=== PATIENT | female | born 1995 | race Caucasian/White ===

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

== ENCOUNTER 2018-03-12 16:15 | Inpatient (IN) | payer MEDICAID ==
[~2018-03-12] VITALS: Ht 170.2 cm; Wt 81.2 kg
[2018-03-12 16:28] VITALS: BP_SYST 123
[2018-03-12 17:01] LABS: BILIRUBIN,URINE 1+ (NEGATIVE); BLOOD, URINE NEGATIVE (NEGATIVE); CLARITY/URINE SL CLOUDY (CLEAR); COLOR,URINE YELLOW (YELLOW); GLUCOSE,URINE NEGATIVE (NEGATIVE); KETONES,URINE 3+ (NEGATIVE); LEUKOCYTE ESTERASE ,URINE TRACE (NEGATIVE); NITRITE, URINE NEGATIVE (NEGATIVE); PH,URINE 5.5 (5.0-8.0); PROTEIN URINE NEGATIVE (NEGATIVE)
[2018-03-12 17:05] LABS: BASOPHILS % (AUTO) 0.6 % (0.0-2.0); EOSINOPHILS # (AUTO) 0.1 K/uL (0.0-0.4); EOSINOPHILS % (AUTO) 1.4 % (0.0-4.0); HEMATOCRIT 41.5 % (36-48); HEMOGLOBIN 13.6 g/dL (12.0-16.0); LYMPHOCYTES # (AUTO) 0.9 K/uL (1.0-5.5); MEAN CORPUSCULAR HEMOGLOBIN 29 pg (27-31); MEAN CORPUSCULAR HGB CONC 33 % (32-36); MEAN CORPUSCULAR VOLUME 87 fL (79.0-98.0); MONOCYTES # (AUTO) 0.6 K/uL (0.0-1.0); MONOCYTES % (AUTO) 7.8 % (1.7-9.3); NEUTROPHILS # (AUTO) 6.5 K/uL (1.8-7.7); NEUTROPHILS % (AUTO) 79.2 % (40.0-70.0); PLATELET COUNT (AUTO) 216 K/uL (130-430); RED BLOOD CELL COUNT(AUTO) 4.78 MIL/uL (4.2-6.2); RED CELL DISTRIBUTION WIDTH 12.2 % (9.0-15.0); WHITE BLOOD COUNT (AUTO) 8.1 K/uL (4.5-11.0)
[2018-03-12 17:11] LABS: BACTERIA,URINE MODERATE /HPF (None Seen); RBC,URINE 0-3 /HPF (0-3)
[2018-03-12 17:15] LABS: CALCIUM 9.3 mg/dL (8.4-11.0); CREATININE 0.7 mg/dL (0.55-1.30); POTASSIUM 4.1 mmol/L (3.5-5.1)
[2018-03-12 17:19] LABS: ALBUMIN 3.9 g/dL (3.4-4.8); TOTAL BILIRUBIN 0.9 mg/dL (0.0-1.0)
[2018-03-12 17:21] LABS: INR 1.1 (0.8-1.2); PROTHROMBIN TIME 10.8 SECS (9.5-12.5)
[2018-03-12] MEDS ORDERED: ONDANSETRON HCL 4 MG/2 ML VIAL IVP ONE (18:00)
[2018-03-12] MEDS ORDERED: MORPHINE 2 MG/ML INJ. SYRINGE IVP ONE (18:00)
[2018-03-12] MEDS ORDERED: MORPHINE 4 MG/ML INJ. SYRINGE IVP ONE (18:15)
[2018-03-12] MEDS ORDERED: methylPREDNISolone SOD SUCC/PF 62.5 MG/ML VIAL IVP ONE (19:00)
[2018-03-12] MEDS ORDERED: DIPHENHYDRAMINE INJ 50 MG/ML VIAL IVP ONE (19:00)
[2018-03-12] MEDS ORDERED: fentaNYL CITRATE/PF 100 MCG/2 ML AMP IVP ONE (19:00)
[2018-03-12] MEDS ORDERED: HYDROcodone/ACETAMIN 10-325 MG TAB PO PRN (20:45)
[2018-03-12] MEDS ORDERED: ACETAMINOPHEN 325 MG TABLET PO PRN (21:00)
[2018-03-12] MEDS ORDERED: MAG-AL HYDROX/SIMETH 30 ML UDC PO PRN (21:00)
[2018-03-12] MEDS ORDERED: DIPHENHYDRAMINE INJ 50 MG/ML VIAL IVP PRN (21:00)
[2018-03-12] MEDS: fentaNYL CITRATE/PF 100 MCG/2 ML AMP IVP PRN (21:10)
[2018-03-12] MEDS: FAMOTIDINE PF 20 MG/2 ML VIAL IVP SCH (21:21)
[2018-03-12 21:30] LABS: BARBITURATE, URINE NEGATIVE (NEG <=200); BENZODIAZEPINE, URINE NEGATIVE (NEG <=150); CANNABINOID, URINE NEGATIVE (NEG <=50); COCAINE, URINE NEGATIVE (NEG <=150); METHAMPHETAMINES SCREEN,URINE NEGATIVE (NEG <=500); OPIATE, URINE POSITIVE (NEG <=100); PHENCYCLIDINE SCREEN,URINE NEGATIVE (NEG <=25); UR TRICYCLIC ANTIDEPRESSANTS NEGATIVE (NEG <=300); URINE AMPHETAMINE NEGATIVE (NEG <=500); URINE METHADONE NEGATIVE (NEG <=200); URINE OXYCODONE SCREEN NEGATIVE (NEG <=100); URINE PROPOXYPHENE SCREEN NEGATIVE (NEG <=300)
[2018-03-12] MEDS: LR 1,000 ML IV SCH (21:47)
[2018-03-12] MEDS: HYDROmorphone 1 MG INJ. 1 MG/ML AMPUL IVP PRN (22:21)
[2018-03-12] MEDS: ONDANSETRON HCL 4 MG/2 ML VIAL IVP PRN (22:21)
[2018-03-12 22:27] VITALS: BP_SYST 122
[2018-03-13 00:25] VITALS: BP_SYST 126
[2018-03-13] MEDS: HYDROmorphone 1 MG INJ. 1 MG/ML AMPUL IVP PRN ×7 (00:25→20:52)
[2018-03-13] MEDS: ONDANSETRON HCL 4 MG/2 ML VIAL IVP PRN ×3 (06:26→20:52)
[2018-03-13 07:41] LABS: BASOPHILS % (AUTO) 0.6 % (0.0-2.0); EOSINOPHILS % (AUTO) 0.1 % (0.0-4.0); HEMATOCRIT 39.5 % (36-48); HEMOGLOBIN 12.6 g/dL (12.0-16.0); LYMPHOCYTES # (AUTO) 0.7 K/uL (1.0-5.5); LYMPHOCYTES % (AUTO) 11.3 % (20.5-51.5); MEAN CORPUSCULAR HEMOGLOBIN 28 pg (27-31); MEAN CORPUSCULAR HGB CONC 32 % (32-36); MEAN CORPUSCULAR VOLUME 87 fL (79.0-98.0); MONOCYTES # (AUTO) 0.1 K/uL (0.0-1.0); MONOCYTES % (AUTO) 1.7 % (1.7-9.3); NEUTROPHILS # (AUTO) 5.7 K/uL (1.8-7.7); NEUTROPHILS % (AUTO) 86.3 % (40.0-70.0); PLATELET COUNT (AUTO) 217 K/uL (130-430); RED BLOOD CELL COUNT(AUTO) 4.54 MIL/uL (4.2-6.2); WHITE BLOOD COUNT (AUTO) 6.5 K/uL (4.5-11.0)
[2018-03-13 08:00] VITALS: BP_SYST 113
[2018-03-13 08:13] LABS: ALBUMIN 3.4 g/dL (3.4-4.8); CREATININE 0.67 mg/dL (0.55-1.30); POTASSIUM 4.1 mmol/L (3.5-5.1); TOTAL BILIRUBIN 0.6 mg/dL (0.0-1.0)
[2018-03-13] MEDS: FAMOTIDINE PF 20 MG/2 ML VIAL IVP SCH ×2 (08:28→20:52)
[2018-03-13] MEDS: LR 1,000 ML IV SCH ×3 (08:28→21:21)
[2018-03-13] MEDS ORDERED: DIATR MEGLU/DIATRIZ SOD 30 ML SOLUTION PO ONE (09:10)
[2018-03-13] MEDS: DIPHENHYDRAMINE INJ 50 MG/ML VIAL IVP PRN ×3 (11:21→23:36)
[2018-03-13 12:13] VITALS: BP_SYST 121
[2018-03-13] MEDS ORDERED: NA PHOS,M-B/NA PHOS,DI-BA 118 ML (FLEET ENEMA) RC ONE (15:00)
[2018-03-13 15:34] VITALS: BP_SYST 109
[2018-03-13] MEDS ORDERED: BISACODYL 5 MG TABLET.DR (DULCOLAX) PO ONE (17:00)
[2018-03-13] MEDS ORDERED: GOLYTELY / COLYTE SOLUTION 4 LITERS PO ONE (18:00)
[2018-03-13 19:40] VITALS: BP_SYST 107
[2018-03-14] VITALS: BP_SYST 107
[2018-03-14] MEDS: HYDROmorphone 1 MG INJ. 1 MG/ML AMPUL IVP PRN ×5 (06:39→17:29)
[2018-03-14 07:32] LABS: ALBUMIN 2.9 g/dL (3.4-4.8); CALCIUM 8.4 mg/dL (8.4-11.0); CREATININE 0.82 mg/dL (0.55-1.30); TOTAL BILIRUBIN 0.4 mg/dL (0.0-1.0)
[2018-03-14 07:41] LABS: PROTHROMBIN TIME 10.4 SECS (9.5-12.5)
[2018-03-14 08:30] VITALS: BP_SYST 114
[2018-03-14] MEDS: FAMOTIDINE PF 20 MG/2 ML VIAL IVP SCH ×2 (08:54→21:48)
[2018-03-14] MEDS: LR 1,000 ML IV SCH ×2 (08:55→22:00)
[2018-03-14 11:58] VITALS: BP_SYST 118
[2018-03-14] MEDS: ONDANSETRON HCL 4 MG/2 ML VIAL IVP PRN ×2 (13:59→18:51)
[2018-03-14] MEDS ORDERED: LR 1,000 ML IV SCH (15:40)
[2018-03-14] MEDS ORDERED: METOCLOPRAMIDE HCL 10 MG/2 ML VIAL IVP PRN (15:45)
[2018-03-14] MEDS ORDERED: MORPHINE 4 MG/ML INJ. SYRINGE IVP PRN ×3 (15:45)
[2018-03-14] MEDS ORDERED: MIVACURIUM CHLORIDE 20 MG/10 ML VIAL (MIVACRON) INJ ONE (16:00)
[2018-03-14] MEDS ORDERED: fentaNYL CITRATE/PF 100 MCG/2 ML AMP ONE (16:00)
[2018-03-14] MEDS ORDERED: PROPOFOL 200MG/ 20ML VIAL (DIPRIVAN) IV ONE (16:00)
[2018-03-14] MEDS ORDERED: MIDAZOLAM HCL 5 MG/ML VIAL (VERSED) IV ONE (16:00)
[2018-03-14] MEDS ORDERED: WATER FOR IRRIGATION,STERILE 1,000 ML IRRIG.SOLN IR ONE (16:00)
[2018-03-14] MEDS ORDERED: ONDANSETRON HCL 4 MG/2 ML VIAL ONE (16:00)
[2018-03-14] MEDS ORDERED: LR 1,000 ML IV.SOLN IV ONE (16:00)
[2018-03-14] MEDS ORDERED: SEVOFLURANE 15 MIN GAS INH ONE (16:00)
[2018-03-14 16:45] VITALS: BP_SYST 114
[2018-03-14 17:01] VITALS: BP_SYST 118
[2018-03-14] MEDS ORDERED: cefTRIAXone 1 GM in D5W 50 ML IV SCH (17:30)
[2018-03-14 19:45] VITALS: BP_SYST 112
[2018-03-14] MEDS: NITROFURANTOIN MONOHYD/M-CRYST 100 MG CAPSULE PO SCH (21:48)
[2018-03-15 00:36] VITALS: BP_SYST 110
[2018-03-15] MEDS: ONDANSETRON HCL 4 MG/2 ML VIAL IVP PRN ×2 (05:56→11:41)
[2018-03-15] MEDS: fentaNYL CITRATE/PF 100 MCG/2 ML AMP IVP PRN ×2 (06:56→10:00)
[2018-03-15 07:50] LABS: BASOPHILS % (AUTO) 0.1 % (0.0-2.0); EOSINOPHILS # (AUTO) 0.1 K/uL (0.0-0.4); EOSINOPHILS % (AUTO) 1.1 % (0.0-4.0); HEMATOCRIT 37.5 % (36-48); HEMOGLOBIN 12.2 g/dL (12.0-16.0); LYMPHOCYTES # (AUTO) 1.3 K/uL (1.0-5.5); LYMPHOCYTES % (AUTO) 16.7 % (20.5-51.5); MEAN CORPUSCULAR HEMOGLOBIN 28 pg (27-31); MEAN CORPUSCULAR HGB CONC 33 % (32-36); MEAN CORPUSCULAR VOLUME 87 fL (79.0-98.0); MONOCYTES # (AUTO) 0.7 K/uL (0.0-1.0); MONOCYTES % (AUTO) 9.4 % (1.7-9.3); NEUTROPHILS # (AUTO) 5.4 K/uL (1.8-7.7); NEUTROPHILS % (AUTO) 72.7 % (40.0-70.0); PLATELET COUNT (AUTO) 217 K/uL (130-430); RED CELL DISTRIBUTION WIDTH 11.7 % (9.0-15.0); WHITE BLOOD COUNT (AUTO) 7.5 K/uL (4.5-11.0)
[2018-03-15 07:57] LABS: ALBUMIN 3.5 g/dL (3.4-4.8); POTASSIUM 3.7 mmol/L (3.5-5.1); TOTAL BILIRUBIN 0.7 mg/dL (0.0-1.0)
[2018-03-15 08:00] VITALS: BP_SYST 103
[2018-03-15 08:30] LABS: ERYTHROCYTE SEDIMENTATION RATE 28 MM/HR (0-20)
[2018-03-15] MEDS: NITROFURANTOIN MONOHYD/M-CRYST 100 MG CAPSULE PO SCH ×2 (08:30→20:35)
[2018-03-15] MEDS: LR 1,000 ML IV SCH ×2 (08:30→20:20)
[2018-03-15] MEDS: FAMOTIDINE PF 20 MG/2 ML VIAL IVP SCH ×2 (08:30→20:35)
[2018-03-15 08:40] LABS: FREE T4 (FREE THYROXINE) 0.9 ng/dL (0.6-1.6)
[2018-03-15] MEDS ORDERED: DIATR MEGLU/DIATRIZ SOD 30 ML SOLUTION PO ONE (08:40)
[2018-03-15 08:41] LABS: THYROID STIMULATING HORMONE 1.54 uIu/mL (0.34-4.82)
[2018-03-15 08:55] LABS: CREATININE 0.76 mg/dL (0.55-1.30)
[2018-03-15] MEDS: HYDROmorphone 1 MG INJ. 1 MG/ML AMPUL IVP PRN ×3 (11:36→22:51)
[2018-03-15 12:06] VITALS: BP_SYST 114
[2018-03-15] MEDS ORDERED: DEXAMETHASONE SOD PHOSPHATE 4 MG/ML VIAL IVP ONE (13:00)
[2018-03-15] MEDS ORDERED: DIPHENHYDRAMINE INJ 50 MG/ML VIAL IVP ONE (13:00)
[2018-03-15] MEDS ORDERED: IOHEXOL 100 ML IV ONE (14:40)
[2018-03-15 16:02] VITALS: BP_SYST 105
[2018-03-15 20:34] VITALS: BP_SYST 97
[2018-03-16 00:37] VITALS: BP_SYST 108
[2018-03-16] MEDS: LR 1,000 ML IV SCH (06:03)
[2018-03-16] MEDS: HYDROmorphone 1 MG INJ. 1 MG/ML AMPUL IVP PRN ×2 (06:04→11:56)
[2018-03-16] MEDS: ONDANSETRON HCL 4 MG/2 ML VIAL IVP PRN ×2 (06:17→15:41)
[2018-03-16 06:53] LABS: BASOPHILS % (AUTO) 0.1 % (0.0-2.0); EOSINOPHILS % (AUTO) 0.6 % (0.0-4.0); HEMATOCRIT 36.8 % (36-48); HEMOGLOBIN 12.2 g/dL (12.0-16.0); LYMPHOCYTES % (AUTO) 15.8 % (20.5-51.5); MEAN CORPUSCULAR HEMOGLOBIN 29 pg (27-31); MEAN CORPUSCULAR HGB CONC 33 % (32-36); MEAN CORPUSCULAR VOLUME 87 fL (79.0-98.0); MONOCYTES # (AUTO) 0.5 K/uL (0.0-1.0); MONOCYTES % (AUTO) 8.2 % (1.7-9.3); NEUTROPHILS # (AUTO) 4.8 K/uL (1.8-7.7); NEUTROPHILS % (AUTO) 75.3 % (40.0-70.0); PLATELET COUNT (AUTO) 205 K/uL (130-430); RED BLOOD CELL COUNT(AUTO) 4.22 MIL/uL (4.2-6.2); RED CELL DISTRIBUTION WIDTH 11.8 % (9.0-15.0); WHITE BLOOD COUNT (AUTO) 6.3 K/uL (4.5-11.0)
[2018-03-16 07:16] LABS: ALBUMIN 3.2 g/dL (3.4-4.8); CALCIUM 9.2 mg/dL (8.4-11.0); CREATININE 0.58 mg/dL (0.55-1.30); TOTAL BILIRUBIN 0.4 mg/dL (0.0-1.0)
[2018-03-16 08:00] VITALS: BP_SYST 136
[2018-03-16] MEDS: FAMOTIDINE PF 20 MG/2 ML VIAL IVP SCH ×2 (09:37→21:00)
[2018-03-16] MEDS: NITROFURANTOIN MONOHYD/M-CRYST 100 MG CAPSULE PO SCH (09:37)
[2018-03-16 11:51] VITALS: BP_SYST 118
[2018-03-16] MEDS: DIPHENHYDRAMINE INJ 50 MG/ML VIAL IVP PRN ×2 (13:28→19:01)
[2018-03-16] MEDS ORDERED: HYDROcodone/ACETAMIN 5-325 MG TAB (NORCO/ VICODIN) PO PRN (14:00)
[2018-03-16] MEDS ORDERED: ACETAMINOPHEN 325 MG TABLET PO PRN (14:15)
[2018-03-16] MEDS ORDERED: cefTRIAXone 1 GM in D5W 50 ML IV SCH (15:00)
[2018-03-16] MEDS: AZITHROMYCIN 500 MG in NS 250 ML IV SCH (15:03)
[2018-03-16 16:13] VITALS: BP_SYST 102
[2018-03-16 20:56] VITALS: BP_SYST 106
[2018-03-17 00:30] VITALS: BP_SYST 104
[2018-03-17] MEDS: HYDROcodone/ACETAMIN 10-325 MG TAB PO PRN ×4 (00:47→21:22)
[2018-03-17] MEDS: ONDANSETRON HCL 4 MG/2 ML VIAL IVP PRN (01:30)
[2018-03-17] MEDS: DIPHENHYDRAMINE INJ 50 MG/ML VIAL IVP PRN ×3 (01:55→20:04)
[2018-03-17 07:46] VITALS: BP_SYST 107
[2018-03-17] MEDS: FAMOTIDINE PF 20 MG/2 ML VIAL IVP SCH ×2 (08:57→20:05)
[2018-03-17] MEDS: AZITHROMYCIN 500 MG in NS 250 ML IV SCH (13:41)
[2018-03-17 16:00] VITALS: BP_SYST 114
[2018-03-17 16:44] VITALS: BP_SYST 114
[2018-03-17] MEDS: AMOXICILLIN 500 MG CAPSULE PO SCH (18:54)
[2018-03-17 19:59] VITALS: BP_SYST 100
[2018-03-17] MEDS: DOCUSATE SODIUM 250 MG CAPSULE PO SCH (20:04)
[2018-03-18 00:37] VITALS: BP_SYST 111
[2018-03-18] MEDS: AMOXICILLIN 500 MG CAPSULE PO SCH ×3 (03:47→18:10)
[2018-03-18] MEDS: HYDROcodone/ACETAMIN 10-325 MG TAB PO PRN ×4 (07:01→20:56)
[2018-03-18 07:42] LABS: BASOPHILS % (AUTO) 0.2 % (0.0-2.0); EOSINOPHILS # (AUTO) 0.2 K/uL (0.0-0.4); EOSINOPHILS % (AUTO) 2.6 % (0.0-4.0); HEMATOCRIT 38.2 % (36-48); HEMOGLOBIN 12.9 g/dL (12.0-16.0); LYMPHOCYTES # (AUTO) 1.2 K/uL (1.0-5.5); LYMPHOCYTES % (AUTO) 15.7 % (20.5-51.5); MEAN CORPUSCULAR HEMOGLOBIN 29 pg (27-31); MEAN CORPUSCULAR HGB CONC 34 % (32-36); MEAN CORPUSCULAR VOLUME 85 fL (79.0-98.0); MONOCYTES # (AUTO) 0.6 K/uL (0.0-1.0); MONOCYTES % (AUTO) 8.1 % (1.7-9.3); NEUTROPHILS # (AUTO) 5.7 K/uL (1.8-7.7); NEUTROPHILS % (AUTO) 73.4 % (40.0-70.0); PLATELET COUNT (AUTO) 254 K/uL (130-430); RED BLOOD CELL COUNT(AUTO) 4.49 MIL/uL (4.2-6.2); RED CELL DISTRIBUTION WIDTH 11.7 % (9.0-15.0); WHITE BLOOD COUNT (AUTO) 7.7 K/uL (4.5-11.0)
[2018-03-18 07:49] LABS: CALCIUM 8.9 mg/dL (8.4-11.0); CREATININE 0.8 mg/dL (0.55-1.30); POTASSIUM 3.6 mmol/L (3.5-5.1)
[2018-03-18 08:00] VITALS: BP_SYST 114
[2018-03-18] MEDS: DOCUSATE SODIUM 250 MG CAPSULE PO SCH ×2 (08:05→20:54)
[2018-03-18] MEDS: FAMOTIDINE PF 20 MG/2 ML VIAL IVP SCH ×2 (08:06→20:55)
[2018-03-18] MEDS: DIPHENHYDRAMINE INJ 50 MG/ML VIAL IVP PRN (09:07)
[2018-03-18 11:39] LABS: ERYTHROCYTE SEDIMENTATION RATE 38 MM/HR (0-20)
[2018-03-18 12:33] VITALS: BP_SYST 117
[2018-03-18] MEDS: AZITHROMYCIN 500 MG in NS 250 ML IV SCH (13:00)
[2018-03-18] MEDS: ONDANSETRON HCL 4 MG/2 ML VIAL IVP PRN (14:59)
[2018-03-18 16:53] VITALS: BP_SYST 105
[2018-03-18 20:00] VITALS: BP_SYST 105
[2018-03-18] MEDS: GABAPENTIN 100 MG CAPSULE PO SCH (20:55)
[2018-03-18] MEDS: METHOCARBAMOL 500 MG TABLET PO SCH (20:55)
[2018-03-19 00:32] VITALS: BP_SYST 102
[2018-03-19] MEDS: ALBUTEROL SULFATE 0.083% 2.5 MG/3 ML VIAL.NEB INH PRN ×2 (00:47→19:20)
[2018-03-19] MEDS: HYDROcodone/ACETAMIN 10-325 MG TAB PO PRN ×2 (00:55→18:03)
[2018-03-19] MEDS: ONDANSETRON HCL 4 MG/2 ML VIAL IVP PRN ×2 (02:12→10:33)
[2018-03-19] MEDS: AMOXICILLIN 500 MG CAPSULE PO SCH ×3 (02:12→18:03)
[2018-03-19] MEDS: MORPHINE 4 MG/ML INJ. SYRINGE IVP PRN ×2 (02:37→07:20)
[2018-03-19 08:00] VITALS: BP_SYST 119
[2018-03-19] MEDS: FAMOTIDINE PF 20 MG/2 ML VIAL IVP SCH ×2 (08:33→20:05)
[2018-03-19] MEDS: DOCUSATE SODIUM 250 MG CAPSULE PO SCH ×2 (08:33→20:04)
[2018-03-19] MEDS: GABAPENTIN 100 MG CAPSULE PO SCH ×3 (08:33→20:05)
[2018-03-19] MEDS: METHOCARBAMOL 500 MG TABLET PO SCH ×4 (08:33→20:04)
[2018-03-19 12:39] VITALS: BP_SYST 106
[2018-03-19] MEDS: AZITHROMYCIN 500 MG in NS 250 ML IV SCH (13:18)
[2018-03-19 16:57] VITALS: BP_SYST 117
[2018-03-19 20:00] VITALS: BP_SYST 128
[2018-03-20 00:36] VITALS: BP_SYST 120
[2018-03-20] MEDS: HYDROcodone/ACETAMIN 10-325 MG TAB PO PRN ×4 (00:48→17:56)
[2018-03-20] MEDS: AMOXICILLIN 500 MG CAPSULE PO SCH ×3 (02:04→18:13)
[2018-03-20 08:19] VITALS: BP_SYST 92
[2018-03-20] MEDS: DOCUSATE SODIUM 250 MG CAPSULE PO SCH ×2 (08:28→20:37)
[2018-03-20] MEDS: GABAPENTIN 100 MG CAPSULE PO SCH ×4 (08:28→20:37)
[2018-03-20] MEDS: METHOCARBAMOL 500 MG TABLET PO SCH ×4 (08:28→20:37)
[2018-03-20] MEDS: FAMOTIDINE PF 20 MG/2 ML VIAL IVP SCH ×2 (08:29→20:37)
[2018-03-20 09:21] VITALS: BP_SYST 92
[2018-03-20] MEDS: ONDANSETRON HCL 4 MG/2 ML VIAL IVP PRN ×3 (10:51→23:17)
[2018-03-20 12:45] VITALS: BP_SYST 115
[2018-03-20] MEDS: AZITHROMYCIN 500 MG in NS 250 ML IV SCH (13:52)
[2018-03-20] MEDS: LORazepam 2 MG/ML VIAL IVP PRN ×2 (14:44→20:27)
[2018-03-20 17:09] VITALS: BP_SYST 99
[2018-03-20] MEDS: ALBUTEROL SULFATE 0.083% 2.5 MG/3 ML VIAL.NEB INH PRN (18:15)
[2018-03-20] MEDS ORDERED: HYDROcodone/ACETAMIN 10-325 MG TAB PO ONE (19:15)
[2018-03-20 23:56] VITALS: BP_SYST 102
[2018-03-21] MEDS: D5/0.45 NS 1,000 ML IV SCH ×4 (00:41→23:50)
[2018-03-21] MEDS: KETOROLAC TROMETHAMINE 15 MG VIAL IVP PRN ×2 (00:42→20:13)
[2018-03-21] MEDS: AMOXICILLIN 500 MG CAPSULE PO SCH ×3 (05:35→19:32)
[2018-03-21 06:47] LABS: CALCIUM 8.9 mg/dL (8.4-11.0); CREATININE 0.8 mg/dL (0.55-1.30)
[2018-03-21 07:02] LABS: TOTAL BILIRUBIN 0.4 mg/dL (0.0-1.0)
[2018-03-21 07:21] LABS: BASOPHILS % (AUTO) 0.4 % (0.0-2.0); EOSINOPHILS # (AUTO) 0.2 K/uL (0.0-0.4); EOSINOPHILS % (AUTO) 3.9 % (0.0-4.0); HEMOGLOBIN 12.9 g/dL (12.0-16.0); LYMPHOCYTES # (AUTO) 1.5 K/uL (1.0-5.5); LYMPHOCYTES % (AUTO) 23.8 % (20.5-51.5); MEAN CORPUSCULAR HEMOGLOBIN 29 pg (27-31); MEAN CORPUSCULAR HGB CONC 34 % (32-36); MEAN CORPUSCULAR VOLUME 85 fL (79.0-98.0); MONOCYTES # (AUTO) 0.7 K/uL (0.0-1.0); MONOCYTES % (AUTO) 12.1 % (1.7-9.3); NEUTROPHILS # (AUTO) 3.7 K/uL (1.8-7.7); NEUTROPHILS % (AUTO) 59.8 % (40.0-70.0); PLATELET COUNT (AUTO) 258 K/uL (130-430); RED BLOOD CELL COUNT(AUTO) 4.47 MIL/uL (4.2-6.2); RED CELL DISTRIBUTION WIDTH 11.9 % (9.0-15.0); WHITE BLOOD COUNT (AUTO) 6.1 K/uL (4.5-11.0)
[2018-03-21] MEDS: FAMOTIDINE PF 20 MG/2 ML VIAL IVP SCH ×2 (08:06→20:12)
[2018-03-21 08:20] VITALS: BP_SYST 118
[2018-03-21] MEDS: METHOCARBAMOL 500 MG TABLET PO SCH ×4 (09:00→20:12)
[2018-03-21] MEDS: GABAPENTIN 100 MG CAPSULE PO SCH ×4 (09:00→20:12)
[2018-03-21] MEDS: HYDROmorphone 1 MG INJ. 1 MG/ML AMPUL IVP PRN ×4 (09:20→21:22)
[2018-03-21] MEDS: ONDANSETRON HCL 4 MG/2 ML VIAL IVP PRN ×4 (09:24→21:29)
[2018-03-21 12:00] VITALS: BP_SYST 106
[2018-03-21] MEDS: LORazepam 2 MG/ML VIAL IVP PRN ×2 (12:15→23:53)
[2018-03-21] MEDS: DOCUSATE SODIUM 250 MG CAPSULE PO SCH ×2 (14:00→20:12)
[2018-03-21 16:53] VITALS: BP_SYST 105
[2018-03-21 20:00] VITALS: BP_SYST 117
[2018-03-22 01:30] VITALS: BP_SYST 119
[2018-03-22] MEDS: HYDROmorphone 1 MG INJ. 1 MG/ML AMPUL IVP PRN ×5 (01:52→20:17)
[2018-03-22] MEDS: ONDANSETRON HCL 4 MG/2 ML VIAL IVP PRN ×5 (01:58→20:17)
[2018-03-22] MEDS: AMOXICILLIN 500 MG CAPSULE PO SCH ×3 (03:52→18:42)
[2018-03-22 07:17] LABS: BASOPHILS % (AUTO) 0.5 % (0.0-2.0); EOSINOPHILS # (AUTO) 0.3 K/uL (0.0-0.4); EOSINOPHILS % (AUTO) 4.4 % (0.0-4.0); HEMATOCRIT 36.2 % (36-48); HEMOGLOBIN 12.1 g/dL (12.0-16.0); LYMPHOCYTES # (AUTO) 1.4 K/uL (1.0-5.5); LYMPHOCYTES % (AUTO) 24.5 % (20.5-51.5); MEAN CORPUSCULAR HEMOGLOBIN 29 pg (27-31); MEAN CORPUSCULAR HGB CONC 34 % (32-36); MEAN CORPUSCULAR VOLUME 86 fL (79.0-98.0); MONOCYTES # (AUTO) 0.6 K/uL (0.0-1.0); MONOCYTES % (AUTO) 10.5 % (1.7-9.3); NEUTROPHILS # (AUTO) 3.6 K/uL (1.8-7.7); NEUTROPHILS % (AUTO) 60.1 % (40.0-70.0); PLATELET COUNT (AUTO) 248 K/uL (130-430); RED BLOOD CELL COUNT(AUTO) 4.19 MIL/uL (4.2-6.2); RED CELL DISTRIBUTION WIDTH 11.8 % (9.0-15.0); WHITE BLOOD COUNT (AUTO) 5.9 K/uL (4.5-11.0)
[2018-03-22 07:49] LABS: ALBUMIN 2.7 g/dL (3.4-4.8); CALCIUM 8.7 mg/dL (8.4-11.0); CREATININE 0.67 mg/dL (0.55-1.30); POTASSIUM 4.3 mmol/L (3.5-5.1); TOTAL BILIRUBIN 0.2 mg/dL (0.0-1.0)
[2018-03-22 08:14] VITALS: BP_SYST 114
[2018-03-22] MEDS: DOCUSATE SODIUM 250 MG CAPSULE PO SCH ×2 (09:16→21:37)
[2018-03-22] MEDS: FAMOTIDINE PF 20 MG/2 ML VIAL IVP SCH ×2 (09:16→21:37)
[2018-03-22] MEDS: METHOCARBAMOL 500 MG TABLET PO SCH ×4 (09:17→21:37)
[2018-03-22] MEDS: GABAPENTIN 100 MG CAPSULE PO SCH ×4 (09:17→21:37)
[2018-03-22] MEDS: D5/0.45 NS 1,000 ML IV SCH (09:21)
[2018-03-22 12:26] VITALS: BP_SYST 114
[2018-03-22 16:06] VITALS: BP_SYST 103
[2018-03-22 19:25] VITALS: BP_SYST 116
[2018-03-22] MEDS: KETOROLAC TROMETHAMINE 15 MG VIAL IVP PRN (22:46)
[2018-03-23] VITALS (7 sets, daily range): BP systolic 105–127
[2018-03-23] MEDS: ONDANSETRON HCL 4 MG/2 ML VIAL IVP PRN ×4 (00:26→22:54)
[2018-03-23] MEDS: HYDROmorphone 1 MG INJ. 1 MG/ML AMPUL IVP PRN ×5 (00:30→22:48)
[2018-03-23] MEDS: D5/0.45 NS 1,000 ML IV SCH ×3 (00:34→22:03)
[2018-03-23] MEDS: AMOXICILLIN 500 MG CAPSULE PO SCH ×3 (02:46→18:04)
[2018-03-23] MEDS: GABAPENTIN 100 MG CAPSULE PO SCH ×4 (09:00→20:23)
[2018-03-23] MEDS: DOCUSATE SODIUM 250 MG CAPSULE PO SCH ×2 (09:00→20:23)
[2018-03-23] MEDS: METHOCARBAMOL 500 MG TABLET PO SCH ×3 (09:00→18:05)
[2018-03-23] MEDS: FAMOTIDINE PF 20 MG/2 ML VIAL IVP SCH ×2 (09:16→20:24)
[2018-03-23] MEDS: LORazepam 2 MG/ML VIAL IVP PRN ×2 (09:16→20:20)
[2018-03-23] MEDS ORDERED: ONDANSETRON HCL 4 MG/2 ML VIAL IVP ONE (12:40)
[2018-03-23] MEDS ORDERED: NEOSTIGMINE METHYLSULFATE 1 MG/ML, 10 ML VIAL IVP ONE (12:40)
[2018-03-23] MEDS ORDERED: SEVOFLURANE 15 MIN GAS INH ONE (12:40)
[2018-03-23] MEDS ORDERED: fentaNYL CITRATE 250 MCG/5 ML AMP IV ONE (12:40)
[2018-03-23] MEDS ORDERED: NS 1000 ML IV.SOLN IV ONE (12:40)
[2018-03-23] MEDS ORDERED: NS IRRIG SOLN 1000 ML IR ONE (12:40)
[2018-03-23] MEDS ORDERED: ROCURONIUM BROMIDE 10 MG/ML (ZEMURON) IV ONE (12:40)
[2018-03-23] MEDS ORDERED: BUPIVACAINE /EPINEPHRINE/PF 0.25% 30 ML VIAL INJ ONE (12:40)
[2018-03-23] MEDS ORDERED: LR 1,000 ML IV.SOLN IV ONE (12:40)
[2018-03-23] MEDS ORDERED: PROPOFOL 200MG/ 20ML VIAL (DIPRIVAN) IV ONE (12:40)
[2018-03-23] MEDS ORDERED: GLYCOPYRROLATE 0.2 MG/ML VIAL IJ ONE (12:40)
[2018-03-23] MEDS ORDERED: CLINDAMYCIN PHOSPHATE 600 mg/50mL D5W IV ONE (12:40)
[2018-03-23] MEDS ORDERED: MIDAZOLAM HCL 5 MG/5 ML VIAL IVP ONE (12:40)
[2018-03-23] MEDS ORDERED: LR 1,000 ML IV SCH (13:37)
[2018-03-23] MEDS ORDERED: HYDROmorphone 1 MG INJ. 1 MG/ML AMPUL IVP PRN ×2 (13:45)
[2018-03-23] MEDS ORDERED: HYDROmorphone 2 MG/ML VIAL IVP PRN (13:45)
[2018-03-23] MEDS ORDERED: METOCLOPRAMIDE HCL 10 MG/2 ML VIAL IVP PRN (13:45)
[2018-03-23] MEDS ORDERED: HYDROmorphone 2 MG/ML VIAL ONE (14:26)
[2018-03-23] MEDS ORDERED: AMPICILLIN SODIUM/SULBACTAM NA 1.5 GM VIAL ONE (21:51)
[2018-03-23] MEDS: AMPICILLIN SODIUM/SULBACTAM NA 1.5 GM in NS 50 ML IV SCH (22:03)
[2018-03-24 00:43] VITALS: BP_SYST 109
[2018-03-24] MEDS: AMPICILLIN SODIUM/SULBACTAM NA 1.5 GM in NS 50 ML IV SCH ×5 (01:02→23:13)
[2018-03-24] MEDS: HYDROmorphone 1 MG INJ. 1 MG/ML AMPUL IVP PRN ×5 (05:56→23:10)
[2018-03-24] MEDS: ONDANSETRON HCL 4 MG/2 ML VIAL IVP PRN ×2 (05:56→21:05)
[2018-03-24 06:25] LABS: BASOPHILS % (AUTO) 0.5 % (0.0-2.0); EOSINOPHILS # (AUTO) 0.1 K/uL (0.0-0.4); EOSINOPHILS % (AUTO) 1.5 % (0.0-4.0); HEMATOCRIT 40.1 % (36-48); HEMOGLOBIN 12.9 g/dL (12.0-16.0); LYMPHOCYTES # (AUTO) 1.4 K/uL (1.0-5.5); LYMPHOCYTES % (AUTO) 25.5 % (20.5-51.5); MEAN CORPUSCULAR HEMOGLOBIN 28 pg (27-31); MEAN CORPUSCULAR HGB CONC 32 % (32-36); MONOCYTES # (AUTO) 0.4 K/uL (0.0-1.0); MONOCYTES % (AUTO) 8.3 % (1.7-9.3); NEUTROPHILS # (AUTO) 3.5 K/uL (1.8-7.7); NEUTROPHILS % (AUTO) 64.2 % (40.0-70.0); PLATELET COUNT (AUTO) 330 K/uL (130-430); RED BLOOD CELL COUNT(AUTO) 4.57 MIL/uL (4.2-6.2); RED CELL DISTRIBUTION WIDTH 11.4 % (9.0-15.0); WHITE BLOOD COUNT (AUTO) 5.4 K/uL (4.5-11.0)
[2018-03-24 07:12] LABS: ALBUMIN 3.1 g/dL (3.4-4.8); CALCIUM 9.2 mg/dL (8.4-11.0); CREATININE 0.8 mg/dL (0.55-1.30); TOTAL BILIRUBIN 0.3 mg/dL (0.0-1.0)
[2018-03-24 07:33] LABS: MEAN CORPUSCULAR VOLUME 88 fL (79.0-98.0)
[2018-03-24 08:00] VITALS: BP_SYST 124
[2018-03-24] MEDS: D5/0.45 NS 1,000 ML IV SCH ×2 (08:08→17:18)
[2018-03-24] MEDS: GABAPENTIN 100 MG CAPSULE PO SCH ×4 (09:04→20:55)
[2018-03-24] MEDS: DOCUSATE SODIUM 250 MG CAPSULE PO SCH (09:04)
[2018-03-24] MEDS: FAMOTIDINE PF 20 MG/2 ML VIAL IVP SCH ×2 (09:05→20:55)
[2018-03-24 09:06] LABS: HEPATITIS A AB, IgM Negative (Negative); HEPATITIS B CORE AB, IgM Negative (Negative); HEPATITIS B SURFACE AG Negative (Negative)
[2018-03-24 10:34] VITALS: BP_SYST 117
[2018-03-24 12:00] VITALS: BP_SYST 125
[2018-03-24 16:00] VITALS: BP_SYST 125
[2018-03-24] MEDS ORDERED: BISACODYL 5 MG TABLET.DR (DULCOLAX) PO PRN (17:15)
[2018-03-24] MEDS ORDERED: MILK OF MAGNESIA 30 ML UDC PO ONE (17:15)
[2018-03-24] MEDS ORDERED: MILK OF MAGNESIA 30 ML UDC PO PRN (17:15)
[2018-03-24 19:50] VITALS: BP_SYST 108
[2018-03-24] MEDS: DOCUSATE SODIUM 100 MG CAPSULE PO SCH (20:55)
[2018-03-25 00:24] VITALS: BP_SYST 111
[2018-03-25] MEDS: D5/0.45 NS 1,000 ML IV SCH ×3 (03:30→23:54)
[2018-03-25] MEDS: HYDROmorphone 1 MG INJ. 1 MG/ML AMPUL IVP PRN ×3 (07:01→15:44)
[2018-03-25] MEDS: AMPICILLIN SODIUM/SULBACTAM NA 1.5 GM in NS 50 ML IV SCH ×4 (07:02→23:54)
[2018-03-25 07:57] LABS: CALCIUM 8.9 mg/dL (8.4-11.0); CREATININE 0.83 mg/dL (0.55-1.30)
[2018-03-25 08:00] VITALS: BP_SYST 110
[2018-03-25 08:15] LABS: BASOPHILS % (AUTO) 0.5 % (0.0-2.0); EOSINOPHILS # (AUTO) 0.2 K/uL (0.0-0.4); HEMATOCRIT 36.1 % (36-48); HEMOGLOBIN 12.1 g/dL (12.0-16.0); LYMPHOCYTES # (AUTO) 1.5 K/uL (1.0-5.5); LYMPHOCYTES % (AUTO) 30.8 % (20.5-51.5); MEAN CORPUSCULAR HEMOGLOBIN 29 pg (27-31); MEAN CORPUSCULAR HGB CONC 34 % (32-36); MEAN CORPUSCULAR VOLUME 85 fL (79.0-98.0); MONOCYTES # (AUTO) 0.5 K/uL (0.0-1.0); MONOCYTES % (AUTO) 10.3 % (1.7-9.3); NEUTROPHILS # (AUTO) 2.8 K/uL (1.8-7.7); NEUTROPHILS % (AUTO) 54.4 % (40.0-70.0); PLATELET COUNT (AUTO) 270 K/uL (130-430); RED BLOOD CELL COUNT(AUTO) 4.22 MIL/uL (4.2-6.2); RED CELL DISTRIBUTION WIDTH 11.7 % (9.0-15.0)
[2018-03-25 08:17] LABS: ALBUMIN 2.8 g/dL (3.4-4.8); TOTAL BILIRUBIN 0.3 mg/dL (0.0-1.0)
[2018-03-25] MEDS: DOCUSATE SODIUM 100 MG CAPSULE PO SCH ×2 (08:48→20:41)
[2018-03-25] MEDS: GABAPENTIN 100 MG CAPSULE PO SCH ×4 (08:48→20:41)
[2018-03-25] MEDS: FAMOTIDINE PF 20 MG/2 ML VIAL IVP SCH ×2 (08:48→20:42)
[2018-03-25] MEDS: ONDANSETRON HCL 4 MG/2 ML VIAL IVP PRN ×2 (11:22→15:42)
[2018-03-25 12:00] VITALS: BP_SYST 120
[2018-03-25] MEDS ORDERED: BISACODYL 5 MG TABLET.DR (DULCOLAX) PO ONE (17:00)
[2018-03-25 17:22] VITALS: BP_SYST 117
[2018-03-25] MEDS ORDERED: HYDROcodone/ACETAMIN 10-325 MG TAB PO PRN (19:30)
[2018-03-25 19:48] VITALS: BP_SYST 117
[2018-03-25] MEDS: KETOROLAC TROMETHAMINE 15 MG VIAL IVP PRN (19:55)
[2018-03-26] MEDS: HYDROcodone/ACETAMIN 5-325 MG TAB (NORCO/ VICODIN) PO PRN ×2 (05:56→11:54)
[2018-03-26] MEDS: AMPICILLIN SODIUM/SULBACTAM NA 1.5 GM in NS 50 ML IV SCH ×3 (05:57→17:56)
[2018-03-26 06:31] VITALS: BP_SYST 115
[2018-03-26 07:50] LABS: FERRITIN 132 ng/mL (15-150)
[2018-03-26 07:58] VITALS: BP_SYST 124
[2018-03-26 08:13] LABS: BASOPHILS % (AUTO) 0.6 % (0.0-2.0); EOSINOPHILS # (AUTO) 0.2 K/uL (0.0-0.4); EOSINOPHILS % (AUTO) 2.7 % (0.0-4.0); HEMATOCRIT 35.1 % (36-48); HEMOGLOBIN 12.2 g/dL (12.0-16.0); LYMPHOCYTES # (AUTO) 1.5 K/uL (1.0-5.5); LYMPHOCYTES % (AUTO) 23.2 % (20.5-51.5); MEAN CORPUSCULAR HEMOGLOBIN 29 pg (27-31); MEAN CORPUSCULAR HGB CONC 35 % (32-36); MEAN CORPUSCULAR VOLUME 84 fL (79.0-98.0); MONOCYTES # (AUTO) 0.5 K/uL (0.0-1.0); MONOCYTES % (AUTO) 7.4 % (1.7-9.3); NEUTROPHILS # (AUTO) 4.2 K/uL (1.8-7.7); NEUTROPHILS % (AUTO) 66.1 % (40.0-70.0); PLATELET COUNT (AUTO) 292 K/uL (130-430); RED BLOOD CELL COUNT(AUTO) 4.19 MIL/uL (4.2-6.2); RED CELL DISTRIBUTION WIDTH 11.7 % (9.0-15.0); WHITE BLOOD COUNT (AUTO) 6.4 K/uL (4.5-11.0)
[2018-03-26] MEDS: GABAPENTIN 100 MG CAPSULE PO SCH ×3 (08:26→17:58)
[2018-03-26] MEDS: FAMOTIDINE PF 20 MG/2 ML VIAL IVP SCH (08:26)
[2018-03-26] MEDS: DOCUSATE SODIUM 100 MG CAPSULE PO SCH ×2 (08:26→08:32)
[2018-03-26 08:48] LABS: CALCIUM 8.8 mg/dL (8.4-11.0); CREATININE 0.76 mg/dL (0.55-1.30); TOTAL BILIRUBIN 0.3 mg/dL (0.0-1.0)
[2018-03-26] MEDS ORDERED: BISACODYL 5 MG TABLET.DR (DULCOLAX) PO PRN (09:00)
[2018-03-26 12:00] VITALS: BP_SYST 116
[2018-03-26] MEDS: D5/0.45 NS 1,000 ML IV SCH (12:02)
[2018-03-26] MEDS ORDERED: HYDR-3925 PO (13:01)
[2018-03-26 16:00] VITALS: BP_SYST 110
[2018-03-26 18:03] VITALS: BP_SYST 120
[2018-03-26 18:05] VITALS: BP_SYST 116
[2018-03-27 17:39] LABS: ANTI NUCLEAR AB WITH REFLEX Negative (Negative)
== END 2018-03-26 18:45 | disposition home or self-care (01) | DRG 263 ==
LOC: SED 16:15 → STU 19:10 → SMU 03-13 12:23
PROVIDERS: ADMIT Internal Medicine; ATTEND Internal Medicine
PROC: 0DB68ZX Excision of Stomach, Via Natural or Artificial Opening Endoscopic, Diagnostic (ICD-10-PCS; 2018-03-14)
PROC: 0DJD8ZZ Inspection of Lower Intestinal Tract, Via Natural or Artificial Opening Endoscopic (ICD-10-PCS; 2018-03-14)
PROC: 0DB98ZX Excision of Duodenum, Via Natural or Artificial Opening Endoscopic, Diagnostic (ICD-10-PCS; principal; 2018-03-14 15:00)
PROC: 0FT44ZZ Resection of Gallbladder, Percutaneous Endoscopic Approach (ICD-10-PCS; 2018-03-24)
DX: K81.0 Acute cholecystitis (principal); J18.1 Lobar pneumonia, unspecified organism; K29.70 Gastritis, unspecified, without bleeding; J20.9 Acute bronchitis, unspecified; N83.201 Unspecified ovarian cyst, right side; K64.8 Other hemorrhoids; J45.909 Unspecified asthma, uncomplicated; J98.11 Atelectasis; K66.0 Peritoneal adhesions (postprocedural) (postinfection); R74.0 Nonspecific elevation of levels of transaminase and lactic acid dehydrogenase [LDH]; K82.8 Other specified diseases of gallbladder; K59.00 Constipation, unspecified; F32.9 Major depressive disorder, single episode, unspecified; F41.9 Anxiety disorder, unspecified; Z79.899 Other long term (current) drug therapy; Z88.8 Allergy status to other drugs, medicaments and biological substances; Z88.6 Allergy status to analgesic agent; Z79.82 Long term (current) use of aspirin
CPT/HCPCS: 36415; 71045; 71046-TC; 74018; 74181; 74250-TC; 76700-TC; 76856-TC; 78226; 80048; 80053; 80061; 80074; 80307; 81000-TC; 82390; 82728; 83516; 83605; 83690-TC; 84439; 84443-TC; 84484; 84703; 85025; 85610-TC; 85651-TC; 85730-TC; 86038; 86256; 86376; 86710; 87040-TC; 87081; 87086; 88304; 88305; 88312; 88313; 90656; 93005; 94010; 94640; 94760; 96374; 96375; 99285; A9537; C1727; G0378; J0295; J0456; J0696; J1100; J1170; J1200; J1885; J2060; J2250; J2270; J2405; J2704; J2710; J2930; J3010; J3490; J7030; J7050; J7060; J7120; J7613; Q9964; Q9967

== ENCOUNTER 2018-12-16 18:02 | Emergency (ER) | payer MEDICAID ==
[~2018-12-16] VITALS: Ht 170.2 cm; Wt 79.4 kg
[~2018-12-16 18:02] MED LIST: HYDR-3925 PO
[2018-12-16 18:09] VITALS: BP_SYST 149
--- NOTE | 2018-12-16 18:16 | NUR ---
Patient to ER bed 07 to gown for evaluation. Side rails up.
--- NOTE | 2018-12-16 18:18 | NUR ---
Pt brought by self, A&Ox4, pt presents to ER with L lower pelvic pain,increases with movement, nausea, pt also states she has vaginal bleeding for 21 days, pt is on implanon, afebrile, skin pink and warm, cap refill <3.
--- NOTE | 2018-12-16 18:19 | NUR ---
Dr Motta at bedside examining patient
[2018-12-16] MEDS ORDERED: KETOROLAC TROMETHAMINE 30 MG VIAL IVP ONE (18:30)
[2018-12-16] MEDS ORDERED: ONDANSETRON HCL 4 MG/2 ML VIAL IVP ONE (18:30)
[2018-12-16 18:39] LABS: BILIRUBIN,URINE NEGATIVE (NEGATIVE); BLOOD, URINE 3+ (NEGATIVE); CLARITY/URINE HAZY (CLEAR); COLOR,URINE YELLOW (YELLOW); GLUCOSE,URINE NEGATIVE (NEGATIVE); KETONES,URINE NEGATIVE (NEGATIVE); LEUKOCYTE ESTERASE ,URINE NEGATIVE (NEGATIVE); NITRITE, URINE NEGATIVE (NEGATIVE); PH,URINE 8.5 (5.0-8.0); PROTEIN URINE NEGATIVE (NEGATIVE); UROBILINOGEN,URINE 0.2 (0.2-1.0)
[2018-12-16 18:49] LABS: BACTERIA,URINE FEW /HPF (None Seen); MUCUS,URINE None Seen /LPF (None Seen); RBC,URINE >100 /HPF (0-3)
[2018-12-16 19:12] LABS: BASOPHILS % (AUTO) 0.5 % (0.0-2.0); EOSINOPHILS % (AUTO) 0.6 % (0.0-4.0); HEMATOCRIT 38.9 % (36-48); HEMOGLOBIN 12.9 g/dL (12.0-16.0); LYMPHOCYTES # (AUTO) 1.8 K/uL (1.0-5.5); LYMPHOCYTES % (AUTO) 28.6 % (20.5-51.5); MEAN CORPUSCULAR HEMOGLOBIN 29 pg (27-31); MEAN CORPUSCULAR HGB CONC 33 % (32-36); MEAN CORPUSCULAR VOLUME 88 fL (79.0-98.0); MONOCYTES # (AUTO) 0.7 K/uL (0.0-1.0); MONOCYTES % (AUTO) 10.6 % (1.7-9.3); NEUTROPHILS # (AUTO) 3.7 K/uL (1.8-7.7); NEUTROPHILS % (AUTO) 59.7 % (40.0-70.0); PLATELET COUNT (AUTO) 178 K/uL (130-430); RED BLOOD CELL COUNT(AUTO) 4.43 MIL/uL (4.2-6.2); WHITE BLOOD COUNT (AUTO) 6.2 K/uL (4.8-10.8)
[2018-12-16 19:14] LABS: CALCIUM 8.5 mg/dL (8.4-11.0); CREATININE 0.76 mg/dL (0.55-1.30); POTASSIUM 4.5 mmol/L (3.5-5.1)
[2018-12-16 19:19] LABS: ALBUMIN 3.6 g/dL (3.4-4.8); TOTAL BILIRUBIN 0.2 mg/dL (0.0-1.0)
[2018-12-16 20:04] VITALS: BP_SYST 138
--- NOTE | 2018-12-16 20:06 | NUR ---
Patient given written and verbal discharge instructions and verbalizes understanding. ER MD discussed with patient the results and treatment provided. Patient in stable condition. ID arm band removed. IV removed , no s/s of infection. Rx of Colace given. Patient educated on pain management and to follow up with PMD. Pain Scale 2/10 tolerable for patient . Opportunity for questions provided and answered. Medication side effect fact sheet provided.
[2018-12-18 21:06] LABS: CHLAMYDIA TRACHOMATIS NAA Negative (Negative); NEISSERIA GONORRHOEAE NAA Negative (Negative)
== END 2018-12-16 20:06 | disposition home or self-care (01) ==
LOC: SED 18:02
DX: K59.00 Constipation, unspecified (principal); Z88.1 Allergy status to other antibiotic agents; Z88.6 Allergy status to analgesic agent; Z88.2 Allergy status to sulfonamides; Z79.899 Other long term (current) drug therapy; Z90.49 Acquired absence of other specified parts of digestive tract
CPT/HCPCS: 36415; 74176; 80053; 81000; 81025; 83690; 85025; 87491; 87591; 96374; 96375; 99284; J1885; J2405

== ENCOUNTER 2019-03-20 17:07 | Emergency (ER) | payer MEDICAID ==
[~2019-03-20] VITALS: Ht 170.2 cm; Wt 76.2 kg
[2019-03-20 17:18] VITALS: BP_SYST 126
[2019-03-20 17:48] LABS: BASOPHILS % (AUTO) 0.4 % (0.0-2.0); EOSINOPHILS % (AUTO) 0.6 % (0.0-4.0); HEMOGLOBIN 13.5 g/dL (12.0-16.0); LYMPHOCYTES # (AUTO) 2.4 K/uL (1.0-5.5); LYMPHOCYTES % (AUTO) 32.4 % (20.5-51.5); MEAN CORPUSCULAR HEMOGLOBIN 30 pg (27-31); MEAN CORPUSCULAR HGB CONC 34 % (32-36); MEAN CORPUSCULAR VOLUME 88 fL (79.0-98.0); MONOCYTES # (AUTO) 0.6 K/uL (0.0-1.0); MONOCYTES % (AUTO) 8.1 % (1.7-9.3); NEUTROPHILS # (AUTO) 4.3 K/uL (1.8-7.7); NEUTROPHILS % (AUTO) 58.5 % (40.0-70.0); PLATELET COUNT (AUTO) 206 K/uL (130-430); RED BLOOD CELL COUNT(AUTO) 4.54 MIL/uL (4.2-6.2); RED CELL DISTRIBUTION WIDTH 12.7 % (9.0-15.0); WHITE BLOOD COUNT (AUTO) 7.3 K/uL (4.8-10.8)
[2019-03-20 17:58] LABS: CALCIUM 8.7 mg/dL (8.4-11.0); CREATININE 0.67 mg/dL (0.55-1.30); POTASSIUM 3.7 mmol/L (3.5-5.1)
[2019-03-20 18:04] LABS: ALBUMIN 4.1 g/dL (3.4-4.8); TOTAL BILIRUBIN 0.2 mg/dL (0.0-1.0)
[2019-03-20 18:11] LABS: BILIRUBIN,URINE NEGATIVE (NEGATIVE); BLOOD, URINE 3+ (NEGATIVE); CLARITY/URINE CLOUDY (CLEAR); COLOR,URINE RED (YELLOW); GLUCOSE,URINE NEGATIVE (NEGATIVE); KETONES,URINE NEGATIVE (NEGATIVE); LEUKOCYTE ESTERASE ,URINE TRACE (NEGATIVE); NITRITE, URINE NEGATIVE (NEGATIVE); PH,URINE 8.5 (5.0-8.0); PROTEIN URINE TRACE (NEGATIVE)
[2019-03-20 18:26] LABS: BACTERIA,URINE FEW /HPF (None Seen); MUCUS,URINE None Seen /LPF (None Seen); RBC,URINE >100 /HPF (0-3)
--- NOTE | 2019-03-20 19:52 | NUR ---
Patient to ER bed 07 to gown for evaluation. Side rails up.
--- NOTE | 2019-03-20 19:55 | NUR ---
Patient brought in by self complaining of left flank pain and back pain x 1 month with nausea and vomiting. Pain 6/10. No other complaints/injuries per patient or as noted. Will continue to monitor.
--- NOTE | 2019-03-20 20:00 | NUR ---
ER Dr. Guzman at bedside examining patient.
[2019-03-20] MEDS ORDERED: NACL 0.9% 1,000 ML IV ONE (20:07)
[2019-03-20] MEDS ORDERED: KETOROLAC TROMETHAMINE 30 MG VIAL IVP ONE (20:15)
[2019-03-20] MEDS ORDERED: LEVOFLOXACIN 500 MG/D5W 100 ML IV ONE (20:15)
[2019-03-20] MEDS ORDERED: ONDANSETRON HCL 4 MG/2 ML VIAL IVP ONE (20:30)
--- NOTE | 2019-03-20 20:30 | NUR ---
# 20 gauge angiocath placed to RAC. Use of asceptic technique. Opsite placed over site. Blood return noted. Blood for lab drawn from site. Flushed with 10 cc of normal saline. No evidence of infiltration noted. Patient tolerated well.
[2019-03-20] MEDS ORDERED: MORPHINE 4 MG/ML INJ. SYRINGE IVP ONE (21:15)
--- NOTE | 2019-03-20 21:32 | NUR ---
PATIENT RESTING AT BEDSIDE.
[2019-03-20 22:42] VITALS: BP_SYST 118
--- NOTE | 2019-03-20 22:42 | NUR ---
Patient given written and verbal discharge instructions and verbalizes understanding. ER MD discussed with patient the results and treatment provided. Patient in stable condition. ID arm band removed. IV catheter removed intact and dressing applied, no active bleeding. Rx of CIPRO AND TRAMADOL given. Patient educated on pain management and to follow up with PMD. Pain Scale 0/10 Opportunity for questions provided and answered. Medication side effect fact sheet provided.
== END 2019-03-20 22:42 | disposition home or self-care (01) ==
LOC: SED 17:07
DX: N12 Tubulo-interstitial nephritis, not specified as acute or chronic (principal); Z88.2 Allergy status to sulfonamides; Z88.6 Allergy status to analgesic agent; Z88.1 Allergy status to other antibiotic agents
CPT/HCPCS: 36415; 74176; 80053; 81000; 81025; 85025; 87040; 87086; 96361; 96374; 96375; 99284; J1885; J1956; J2270; J2405; J7030